=== PATIENT | male | born 1960 | race African-American/Black ===

== ENCOUNTER 2016-06-02 18:40 | Emergency (ER) | payer BC ==
--- NOTE | ~2016-06-02 | CT16 ---
[facility] A Service of [facility] RADIOLOGY TEXT RESULTS PATIENT: MIKAL ARITA JR LOCATION: [facility] : 56 UNIT #: [id number] AGE: [address]: Cam Frausto MD SEX: M ORDER DR: [id number] [facility] [address] [place], [place] [address] [id number] E MR#: [id number] Acc #: [id number] NAME: MIKAL ARITA JR : 1960 SEX: M STUDY DATE/TIME: 06/02/2016 20:45 UNIT: [facility] ROOM: STUDY DESCRIPTION: CT Angio Chest for PE Attending Physician: Cam Frausto M.D. Ordering Physician: Cam Frausto M.D. Primary Care Physician: Renee Sanchez A.P.R.N. MEDICAL IMAGING REPORT This report is preliminary unless electronic signature is present EXAM CT angiogram chest with IV contrast HISTORY Shortness of air today. Syncope. TECHNIQUE This CT examination was performed with one or more of the following radiation dose reduction techniques: automatic exposure control, adjustment of mA and/or kV according to patient size, and iterative reconstruction. FINDINGS IV contrast enhanced CT angiogram of the chest was performed with 3-D reconstructions. Minimal atelectasis in the posterior lower lobes. No airspace infiltrates or pleural effusions. Dilatation of the main pulmonary artery measuring 5 cm in diameter. The central right and left pulmonary arteries are normal in caliber. No pulmonary embolus. Small calcified mediastinal and left hilar nodes. Small incidental pleural lipoma over the lateral right upper lobe measuring 1 cm in short axis dimension. Normal caliber thoracic aorta. IMPRESSION 1. No pulmonary embolus. 2. Dilatation of the main pulmonary artery measuring 5 cm in diameter. Remainder of the pulmonary arteries are normal in caliber. 3. No focal infiltrates or effusions. No adenopathy. 4. Incidental small pleural lipoma over the lateral right upper lobe measuring close to 1 cm in short axis dimension. [facility] A Service of [facility] RADIOLOGY TEXT RESULTS PATIENT: MIKAL ARITA JR LOCATION: [facility] #: [id number] : 56 UNIT #: [id number] AGE: [address]: Cam Frausto MD SEX: M ORDER DR: Dictated by... Deep Ordoñez M.D. THIS IS AN ELECTRONICALLY VERIFIED REPORT Deep Ordoñez M.D. at 06/03/2016 11:08 AM BUBBA/jerzy TD: 06/03/2016 08:15 JOB #: [id number] MEDICAL IMAGING REPORT Page 1 of 1 COPY
--- NOTE | ~2016-06-02 | EKG ---
PATIENT: MIKAL ARITA UNIT #: [id number] Ventricular Rate: 62 BPM Atrial Rate: 62 BPM P-R Interval: 104 ms QRS Duration: 112 ms Q-T Interval: 424 ms QTC Calculation(Bezet): 430 ms Calculated R [place]: 64 degrees Calculated T [place]: -122 degrees Diagnosis Line: Sinus rhythm with short MS with Premature atrial Diagnosis Line: complexes Diagnosis Line: Inferior-posterior infarct , age undetermined Diagnosis Line: Anterolateral infarct , age undetermined Diagnosis Line: Abnormal ECG Diagnosis Line: When compared with ECG of 25-NOV-2012 11:55, Diagnosis Line: Significant changes have occurred Diagnosis Line: Confirmed by ERIC CRUZ MD ([id number]) on 06/02/2016 Diagnosis Line: 10:03:14 PM INTERPRETING MD: NANCY WOOTEN
--- NOTE | ~2016-06-02 | CR72 ---
[facility] A Service of [facility] RADIOLOGY TEXT RESULTS PATIENT: MIKAL ARITA JR LOCATION: [facility] : 56 UNIT #: [id number] AGE: [address]: Cam Frausto MD SEX: M ORDER DR: [id number] [facility] [address] [place], [place] [address] [id number] E MR#: [id number] Acc #: [id number] NAME: MIKAL ARITA JR : 1960 SEX: M STUDY DATE/TIME: 06/02/2016 16:40 UNIT: [facility] ROOM: STUDY DESCRIPTION: CR Chest Single View Portable Attending Physician: Cam Frausto M.D. Ordering Physician: Drake Singh M.D. Primary Care Physician: Renee Sanchez A.P.R.N. MEDICAL IMAGING REPORT This report is preliminary unless electronic signature is present EXAM Single view of the chest, 06/02/2016 COMPARISON Chest 2 views dated 01/24/2016. HISTORY Chest pain and tightness, shortness of air today. FINDINGS 2 views of the chest were obtained. Minimal if any atelectatic changes are in the lung bases, stable since last year. No superimposed acute cardiopulmonary disease. Heart, mediastinum and bones appear to be within normal limits. Dictated by... Humera Washington M.D. THIS IS AN ELECTRONICALLY VERIFIED REPORT Humera Washington M.D. at 06/03/2016 1:48 PM CPR/ljd TD: 06/03/2016 04:53 JOB #: [id number] MEDICAL IMAGING REPORT Page 1 of 1 COPY
[2016-06-02 17:30] LABS: BASOPHIL# 0.1 X10e3 (0-0.3); BASOPHIL% 1.3 % (0-2.5); EOSINOPHIL# 0.5 X10e3 (0-0.7); EOSINOPHIL% 7.6 % (0.0-7.0); HEMATOCRIT 43.2 % (38.0-50.0); HEMOGLOBIN 13.9 gm/dL (13.0-16.0); LYMPHOCYTE# 1.5 X10e3 (1.0-3.5); LYMPHOCYTE% 25.4 % (17.0-45.0); MEAN CELL VOLUME 95.7 FL (83-96); MEAN CORPUSCULAR HEMOGLOBIN 30.8 PG (28-34); MEAN CORPUSCULAR HGB CONC 32.2 g/dL (30-36); MONOCYTE# 0.7 X10e3 (0-1.0); MONOCYTE% 12.1 % (3.0-12.0); NEUTROPHIL# 3.2 X10e3 (1.5-7.1); NEUTROPHIL% 53.6 % (40-75); PLATELET COUNT 213 X10e3 (140-420); RED BLOOD COUNT 4.51 X10e (3.90-5.60); RED CELL DISTRIBUTION WIDTH 15.4 % (11.0-15.5); WHITE BLOOD COUNT 6.1 X10e3 (4.0-10.5)
[2016-06-02 17:32] LABS: DIFF IND NO
[2016-06-02 17:43] LABS: PARTIAL THROMBOPLASTIN TIME 25.8 SECONDS (23.5-31.3); PROTHROMBIN TIME (PATIENT) 10.6 SECONDS (9.6-11.5)
[2016-06-02 17:53] LABS: ALBUMIN SERUM 4.1 g/dL (3.5-5.0); BILIRUBIN, DIRECT 0.1 mg/dL (0.0-0.2); BILIRUBIN,INDIRECT 0.1 mg/dL (0.0-0.9); BILIRUBIN,TOTAL 0.2 mg/dL (0.2-2.0); BUN/CREATININE RATIO 13.33; CALCIUM SERUM 9.2 mg/dL (8.4-10.2); CREATININE SERUM 1.2 mg/dL (0.6-1.4); GLOM FILT RATE Estimated 76.8 mL/min (>60); POTASSIUM 3.8 mmol/L (3.5-5.1)
[~2016-06-02 18:40] MED LIST: APRESOLINE PO; ASPIRIN81 M1 PO; FLOMAX0.4 M1 PO; FLONASE 0.05% N16 G1; FLONASE16 GM; HYDRALAZINE HC100 MG PO; HYDROCHLOROTHIA25 MG PO; HYDROCODON-ACE1 EAC9 PO; LASIX20 MG PO; MUCINEX D ER T1 EACH PO; MUCINEX DM ER1 EACH PO; PERCOCET 7.5-31 EACH PO; PREDNISONE PO; PROAIR HFA8.5 GM IH; PROAIR HFA8.5 GM IN; SYMBICORT INH; SYNTHROID PO
[2016-06-02 18:53] LABS: POC - CKMB 7.1 ng/mL (0.0-7.9); POC - TROPONIN <0.05 ng/mL (<=0.05)
[2016-06-02 20:37] LABS: POC - CKMB 4.8 ng/mL (0.0-7.9); POC - TROPONIN <0.05 ng/mL (<=0.05)
[2016-06-02 22:09] LABS: POC - CKMB 5.8 ng/mL (0.0-7.9); POC - TROPONIN <0.05 ng/mL (<=0.05)
== END 2016-06-02 22:51 | disposition home or self-care (01) ==
LOC: CED 18:40
PROVIDERS: Emergency Medicine
DX: T17.928A Food in respiratory tract, part unspecified causing other injury, initial encounter (principal); R55 Syncope and collapse; I50.9 Heart failure, unspecified; Z88.5 Allergy status to narcotic agent; Z79.899 Other long term (current) drug therapy; Z88.8 Allergy status to other drugs, medicaments and biological substances; X58.XXXA Exposure to other specified factors, initial encounter; Y92.9 Unspecified place or not applicable
CPT/HCPCS: 36415; 71010; 71275; 80048; 80076; 82553; 84484; 85025; 85379; 85610; 85730; 93005; 99285; Q9967

== ENCOUNTER 2016-07-10 19:19 | Observation (INO) | payer BC ==
--- NOTE | ~2016-07-10 | CT23 ---
[facility] A Service of [facility] & [facility] RADIOLOGY TEXT RESULTS PATIENT: MIKAL ARITA JR LOCATION: [facility] 334-01 : 56 UNIT #: [id number] AGE: [address]: Linda Nicole MD SEX: M ORDER DR: [id number] [facility] [address] [place], [place] [address] [id number] I MR#: [id number] Acc #: [id number] NAME: MIKAL ARITA JR : 1960 SEX: M STUDY DATE/TIME: 07/11/2016 12:57 UNIT: [address] ROOM: [facility] STUDY DESCRIPTION: CT Angio Neck Attending Physician: Linda Nicole M.D. Ordering Physician: Kelly Lynch M.D. Primary Care Physician: Renee Sanchez A.P.R.N. MEDICAL IMAGING REPORT This report is preliminary unless electronic signature is present EXAM CT scan of the head and neck with contrast with CT angiography HISTORY Left-sided neck pain for the past 4 days intermittently with balance disturbance over the last 3 months. 2 falls within the past 3 weeks. Syncope. TECHNIQUE Thin section imaging was obtained from the mid mediastinum to the top of head with contrast. 100 mL of Isovue was used. CT angiography was performed with thick sliding MIPs, curved planar reformats and 3-D volumetric imaging with surface shaded and volume shaded display. This CT exam was performed with one or more of the following radiation dose reduction techniques: automatic exposure control, adjustment of mA and/or kV according to patient size, and iterative reconstruction. FINDINGS Extravascular structures are unremarkable. The CT angiographic study shows wide patency of the great vessels off the arch. Both vertebrals are widely patent. The right vertebral is more dominant distally. The basilar artery is widely patent. There is minimal calcified plaque at the left bifurcation for the carotids without stenosis by NASCET criteria. The right bifurcation is clear. The distal carotids up through the siphons are unremarkable. No evidence of carotid dissection. In the intracranial circulation there is no evidence of aneurysm, vascular malformation or major branch vessel occlusion. No severe intracranial stenosis is seen. [facility] A Service of [facility] & [facility] RADIOLOGY TEXT RESULTS PATIENT: MIKAL ARITA JR LOCATION: [facility] 334-01 : 56 UNIT #: [id number] AGE: [address]: Linda Nicole MD SEX: M ORDER DR: IMPRESSION Tiny calcified plaque at the left carotid bifurcation. Otherwise negative CTA. STAT * RESULT e Dictated by... Hermelindo Cortez M.D. THIS IS AN ELECTRONICALLY VERIFIED REPORT Hermelindo Cortez M.D. at 07/11/2016 6:26 PM Ghislaine TD: 07/11/2016 17:27 JOB #: [id number] MEDICAL IMAGING REPORT Page 1 of 1 COPY
--- NOTE | ~2016-07-10 | HP ---
Unit #: [id number] #: [id number] Patient: MIKAL ARITA JR [id number] [address] [place], [place] [address] [id number] I MR#: [id number] NAME: MIKAL ARITA JR ROOM: 334 Age: 56 Sex: M Admission Date: 07/11/2016 : 1960 Attending Physician: Kelly Lynch M.D. Primary Care Physician: Renee Sanchez A.P.R.N. HISTORY AND PHYSICAL CHIEF COMPLAINT Mild rhabdomyolysis, left neck pain, muscle cramps. HISTORY This pleasant 56-year-old male with sarcoidosis, COPD, SHARI, valvular heart disease, hypertension, is admitted for muscle cramps and left neck pain. The patient states that over the past week she has been experiencing intense generalized muscle cramps to the point where he will develop chest pain and shortness of breath and actually have two syncopal episodes. Over the past five days, has been experiencing fairly intense left posterior neck pain as well. Notes some lightheadedness with the above. He presents to this emergency department with mild rhabdomyolysis. In the ER, he was given Tylenol and being bolused with IV fluids. Does have a history of thyroid disease, does not take cholesterol medicines. He is followed by Dr. Will Holland for heart disease but states that he had a negative cardiac catheterization in the past along with negative stress test. He does have a reported history of valvular heart disease. Saw Dr. Will Holland yesterday. PAST MEDICAL HISTORY 1. Sarcoidosis of the lungs. 2. COPD/asthma and obstructive sleep apnea, on p.r.n. oxygen and uses BiPAP. 3. Lumbar spinal stenosis with right foot drop. 4. Chronic back pain secondary to spinal stenosis. 5. History of kidney disease. 6. BPH. 7. Hypertension. 8. Hypothyroidism. 9. Valvular heart disease. 10. Bilateral arthroscopic knee surgery. 11. Umbilical hernia repair. 12. Bilateral arm tendon rupture and repair. 13. Adenoidectomy. 14. Left femur fracture requiring surgery. ALLERGIES Ultram, resulting in a seizure. Lisinopril and hydrochlorothiazide. HOME MEDICATIONS 1. Albuterol inhaler as needed. 2. Aspirin 81 mg daily. 3. Lasix 40 mg b.i.d. Unit #: [id number] #: [id number] Patient: MIKAL ARITA JR 4. Hydralazine 100 mg b.i.d. 5. Synthroid 0.25 mg daily. 6. Losartan 50 mg daily. 7. Toprol XL 50 mg daily. 8. Singulair 10 mg daily. 9. Multivitamin daily. 10. Percocet 7.5/325 q.6 hours as needed. 11. Potassium 20 mEq b.i.d. 12. Flomax 0.4 mg daily. 13. Spiriva, one puff daily. FAMILY HISTORY CAD. SOCIAL HISTORY The patient lives with his and son. He stopped smoking 17 years ago. Drinks daily alcohol, probably about one drink a night but more on the weekends. REVIEW OF SYSTEMS Notable for tense muscle cramps, sarcoidosis, COPD, obstructive sleep apnea, left knee pain, spinal stenosis, foot drop, hypothyroidism, hypertension, valvular heart disease, above mentioned surgeries. All other systems were reviewed and are otherwise negative. PHYSICAL EXAMINATION GENERAL APPEARANCE: Pleasant, obese 56-year-old male, currently in no acute distress. VITAL SIGNS: Temperature 98.3, pulse 80, respirations 20, blood pressure 147/87. O2 saturation is 95%. HEENT: Eyes PERRLA. Extraocular muscles are intact. Pharynx is benign. NECK: Supple without adenopathy, thyromegaly or carotid bruits. CHEST: Clear. CARDIAC: Normal S1 and S2 without murmur. ABDOMEN: Bowel sounds are present. No hepatosplenomegaly, tenderness or masses. Well-healed scar is noted. EXTREMITIES: Minimal edema. Pedal pulses are present. NEUROLOGIC EXAM: The patient is awake, alert, oriented x3. His cranial nerves are intact. He has +5 out of 5 strength throughout. Normal [id number]-[id number]. Negative pronator drift. DIAGNOSTIC STUDIES LABORATORY: Admission labs - hematocrit 45, normal white count and platelet count. SMA-12 - notable for an ALT of 52, AST 59. CPK is 2600. BMP is normal. Cardiac markers are negative. Urinalysis is negative. IMAGING: Head CT shows sinus disease and bilateral proptosis. Chest x-ray - no acute disease. CARDIOVASCULAR: EKG shows a normal sinus rhythm, rate 77 with nonspecific inferior T wave changes and lateral ST abnormalities. Unit #: [id number] #: [id number] Patient: MIKAL ARITA JR ASSESSMENT 1. Severe muscle cramps, intermittent for the past two weeks, of uncertain etiology: No changes in medicine. Chemistries are fairly normal. The patient does not take statins. With this, he has mild rhabdomyolysis. 2. Reported history of valvular heart disease with negative ischemia workup in the past. 3. Syncope x2 over the past two weeks when experiencing severe muscle cramps. 4. History of kidney disease. 5. Sarcoidosis. 6. Hypothyroidism. 7. Hypertension. 8. Obstructive sleep apnea and chronic obstructive pulmonary disease. 9. Left neck pain. 10. Benign prostatic hypertrophy. 11. Morbid obesity. PLANS 1. IV fluids. 2. Recheck labs in the morning, check magnesium, TSH, urine tox screen, sed rate, SHANNAN, cardiac enzymes. 3. Repeat EKG in the morning. 4. Decrease Lasix and potassium for now in case these are contributing to patient's symptoms. 5. Old records. 6. CTA of the head and neck in the morning after hydration. 7. Holter monitor. 8. DVT prophylaxis. Dictated by Kelly Lynch M.D. MAL/tate TD: 07/11/2016 05:20 JOB #: [id number] HISTORY AND PHYSICAL Page 1 of 1 X Kelly Lynch MD HISTORY AND PHYSICAL
--- NOTE | ~2016-07-10 | BMI ---
[facility] Nutrition Therapy DATE: 07/11/16 Patient: MIKAL Paula JR LYLA Physician: SCARLETT Address: [address] [place] [address] Room/Bed: [address] [place] [address], Zip: [place] [address] Admit Date: 07/11/16 Date of : 56 Height: 6 1 Weight: 333 151.4 HIGH BMI NOTE: DX: 56 y/o male admitted with mild rhabdo, dizziness ANTHROPOMETRICS: Ht: 73", Wt: 151.4 kg, BMI: 44 (Stage III obese) DIET: Healthy heart INTERVENTION: Restricted diet, meds/fluids per MD RECOMMENDATIONS: Continue current diet to promote a gradual weight loss towards a healthy BMI range. Respectfully, Sabina Abdi RD, LD [facility] cc: client file
--- NOTE | ~2016-07-10 | EKG ---
PATIENT: MIKAL ARITA UNIT #: [id number] Ventricular Rate: 52 BPM Atrial Rate: 108 BPM QRS Duration: 102 ms Q-T Interval: 496 ms QTC Calculation(Bezet): 461 ms Calculated R [place]: 63 degrees Calculated T Pride: -92 degrees Diagnosis Line: Sinus rhythm Diagnosis Line: Inferior-posterior infarct , age undetermined Diagnosis Line: Baseline wander Diagnosis Line: Abnormal ECG Diagnosis Line: No previous ECGs available Diagnosis Line: Confirmed by JIAN OJEDA MD ([id number]) on 07/11/2016 Diagnosis Line: 6:08:22 PM INTERPRETING MD: LYNETTE WOOTEN
--- NOTE | ~2016-07-10 | CT71 ---
[facility] A Service of [facility] RADIOLOGY TEXT RESULTS PATIENT: MIKAL ARITA JR LOCATION: [facility] : 56 UNIT #: [id number] AGE: [address]: CHARBEL ALVAREZ APRN SEX: M ORDER DR: [id number] [facility] [address] [place], [place] [address] [id number] E MR#: [id number] Acc #: [id number] NAME: MIKAL ARITA JR : 1960 SEX: M STUDY DATE/TIME: 07/10/2016 21:27 UNIT: [facility] ROOM: STUDY DESCRIPTION: CT Head Wo Contrast Attending Physician: Charbel Alvarez Aprn Ordering Physician: Charbel Alvarez Aprn Primary Care Physician: Renee Sanchez A.P.R.N. MEDICAL IMAGING REPORT This report is preliminary unless electronic signature is present EXAM CT brain without contrast HISTORY Head and neck pain for 4 days. Loss of balance for [address] exam was performed with one or more of the following radiation dose reduction techniques: automatic exposure control, adjustment of mA and/or kV according to patient size, and iterative reconstruction. FINDINGS CT brain without contrast demonstrates no intracranial hemorrhage, mass or edema. No midline shift or ventricular dilatation or extraaxial fluid collection. The right mastoid air cells are predominately opacified by mucosal thickening. There is also mild mucosal thickening in ethmoid air cells bilaterally. Bilateral orbital proptosis. IMPRESSION 1. No acute intracranial findings. 2. Mild mucosal thickening in ethmoid air cells bilaterally and in right mastoid air cells. 3. Bilateral orbital proptosis. Dictated by... Deep Ordoñez M.D. THIS IS AN ELECTRONICALLY VERIFIED REPORT Deep Ordoñez M.D. at 07/10/2016 11:22 PM DFL/pcl [facility] A Service [facility] RADIOLOGY TEXT RESULTS PATIENT: MIKAL ARITA JR LOCATION: [facility] : 56 UNIT #: [id number] AGE: [address]: CHARBEL ALVAREZ APRN SEX: M ORDER DR: TD: 07/10/2016 22:45 JOB #: [id number] MEDICAL IMAGING REPORT Page 1 of 1 COPY
--- NOTE | ~2016-07-10 | EKG ---
PATIENT: MIKAL ARITA UNIT #: [id number] Ventricular Rate: 77 BPM Atrial Rate: 77 BPM P-R Interval: 208 ms QRS Duration: 98 ms Q-T Interval: 414 ms QTC Calculation(Bezet): 468 ms Calculated R [place]: 88 degrees Calculated T [place]: -101 degrees Diagnosis Line: Normal sinus rhythm with short LA Diagnosis Line: T wave abnormality, consider anterior ischemia T Diagnosis Line: wave abnormality, consider anterior ischemia T Diagnosis Line: wave abnormality, consider inferior ischemia Diagnosis Line: Abnormal ECG Diagnosis Line: Diagnosis Line: Confirmed by JIAN OJEDA MD ([id number]) on 07/11/2016 Diagnosis Line: 6:04:27 PM INTERPRETING MD: LYNETTE WOOTEN
--- NOTE | ~2016-07-10 | CR72 ---
[facility] A Service of [facility] & [facility] RADIOLOGY TEXT RESULTS PATIENT: MIKAL ARITA JR LOCATION: [facility] : 56 UNIT #: [id number] AGE: [address]: CHARBEL ALVAREZ APRN SEX: M ORDER DR: [id number] [facility] [address] [place], [place] [address] [id number] E MR#: [id number] Acc #: [id number] NAME: MIKAL ARITA JR : 1960 SEX: M STUDY DATE/TIME: 07/10/2016 20:26 UNIT: [facility] ROOM: STUDY DESCRIPTION: CR Chest Single View Portable Attending Physician: Charbel Alvarez Aprn Ordering Physician: Charbel Alvarez Aprn Primary Care Physician: Renee Sanchez A.P.R.N. MEDICAL IMAGING REPORT This report is preliminary unless electronic signature is present EXAM Portable chest HISTORY Left-sided pain. Dizzy and shortness of air today. FINDINGS Mild hyperinflation of both lungs. Cardiac size and pulmonary vascularity are normal. Mild linear atelectasis or scarring in the left base. No airspace infiltrates or pleural effusions. IMPRESSION No acute findings and no active disease. Dictated by... Deep Ordoñez M.D. THIS IS AN ELECTRONICALLY VERIFIED REPORT Deep Ordoñez M.D. at 07/10/2016 11:22 PM DFL/pcl TD: 07/10/2016 22:29 JOB #: [id number] MEDICAL IMAGING REPORT Page 1 of 1 COPY
--- NOTE | ~2016-07-10 | CT17 ---
[facility] A Service of [facility] & [facility] RADIOLOGY TEXT RESULTS PATIENT: MIKAL ARITA JR LOCATION: [facility] 334-01 : 56 UNIT #: [id number] AGE: [address]: Linda Nicole MD SEX: M ORDER DR: [id number] [facility] [address] [place], [place] [address] [id number] I MR#: [id number] Acc #: [id number] NAME: MIKAL ARITA JR : 1960 SEX: M STUDY DATE/TIME: 07/11/2016 12:57 UNIT: [address] ROOM: [facility] STUDY DESCRIPTION: CT Angio Head Attending Physician: Linda Nicole M.D. Ordering Physician: Kelly Lynch M.D. Primary Care Physician: Renee Sanchez A.P.R.N. MEDICAL IMAGING REPORT This report is preliminary unless electronic signature is present EXAM CT scan of the head 07/11/2016 Result text under order number ending [id number] CT scan of the head and neck with contrast with CT angiography 07/11/2016. Please see this order for result text. Dictated by... Hermelindo Cortez M.D. THIS IS AN ELECTRONICALLY VERIFIED REPORT Hermelindo Cortez M.D. at 07/11/2016 6:26 PM HARESH/tico TD: 07/11/2016 17:29 JOB #: [id number] MEDICAL IMAGING REPORT Page 1 of 1 COPY
--- NOTE | ~2016-07-10 | DS ---
Unit #: [id number] #: [id number] Patient: MIKAL EASON JR [id number] [address] [address] [id number] I MR#: [id number] NAME: MIKAL EASON JR ROOM: 334 Age: 56 Sex: M Admission Date: 07/11/2016 : 1960 Discharge Date: 07/11/2016 Attending Physician: Linda Nicole M.D. Primary Care Physician: Renee Sanchez A.P.R.N. DISCHARGE SUMMARY PRINCIPAL DIAGNOSES 1. Mild rhabdomyolysis secondary to #2. 2. Severe left trapezius muscle cramp, acute on chronic. 3. Syncope x2, the most recent being three weeks ago. 4. Sarcoidosis, maintained on prednisone therapy. 5. Hypothyroidism. 6. Hypertension. 7. Morbid obesity. 8. Benign prostatic hypertrophy. 9. Obstructive sleep apnea, maintained on CPAP. 10. Chronic obstructive pulmonary disease. 11. Bradycardia, mild. 12. Chronic kidney disease stage 3 with baseline creatinine of approximately 1.3. CONSULTANTS None. PROCEDURES 1. CTA of the head and neck, results of which are currently pending. 2. CT of the head without contrast on July 10, 2016, with no acute findings. Mild mucosal thickening of the ethmoid air cells bilaterally and right mastoid air cells. Bilateral orbital proptosis noted. 3. Chest x-ray on July 10, 2016, with no acute findings. CLINICAL HISTORY/HOSPITAL COURSE Mr. Eason is a very nice 56-year-old -[place] male who presents to the emergency department with complaints of severe left neck pain and cramping. CT scan of the head in the emergency department was unremarkable. However, blood work reveals some rhabdomyolysis with a CPK of approximately 2600 and patient was admitted due to his elevated CPK in conjunction with some reports of syncope at home recently. Please refer to H and P for further details. The patient was monitored overnight but his muscle cramping has completely resolved. He states he has these intermittently for quite some time and will intermittently take baclofen. However, he had ran out of baclofen. CTA of the head and neck has been done but results currently pending to ensure there is no abnormality in vasculature but I anticipate this will be negative. In regards to patient's syncope, he states this usually happens when he is short of breath and hyperventilates at times. I have had no evidence of Unit #: [id number] #: [id number] Patient: MIKAL EASON JR arrhythmia during this hospitalization. He has had some mild bradycardia with heart rates running in the 55s but these tend to occur more when he is sleeping and he is on beta uma therapy. I don't anticipate that this bradycardia is contributing to his episodes of syncope. The patient is followed on a chronic outpatient basis with Dr. Holland and he can follow up there. Assuming CTA of the head and neck is normal, the patient can be discharged home later today. DISCHARGE CONDITION Stable. DISCHARGE STATUS Discharge to home. DISCHARGE MEDICATIONS 1. Albuterol inhaler, two puffs every six hours p.r.n. for shortness of breath. 2. Flomax 0.4 mg daily. 3. Spiriva 18 mcg, one puff daily. 4. Metoprolol succinate 50 mg daily. 5. Lasix 40 mg daily. 6. Hydralazine 100 mg b.i.d. 7. Losartan 50 mg daily. 8. Singulair 10 mg daily. 9. Daily multivitamin. 10. Aspirin 81 mg daily. 11. Percocet 7.5/325 mg, one every six hours p.r.n. for pain. 12. Potassium chloride 20 mEq p.o. daily. 13. Levothyroxine 250 mcg p.o. daily. 14. Baclofen 10 mg p.o. t.i.d. p.r.n. for muscle spasm. DISCHARGE INSTRUCTIONS The patient was instructed to follow a heart healthy low calorie diet. He can increase his activity as tolerated. FOLLOWUP The patient will follow up with Renee Sanchez A.P.R.N. as previously scheduled on July 16. Dictated by... Linda Nicole M.D. TYREE/tate TD: 07/12/2016 07:34 JOB #: [id number] Unit #: [id number] #: [id number] Patient: MIKAL EASON JR DISCHARGE SUMMARY Page 1 of 1 X Linda Nicole MD X DISCHARGE SUMMARY
--- NOTE | ~2016-07-10 | HM ---
Unit #: [id number] #: [id number] Patient: MIKAL ARITA JR [id number] [address] [address] [id number] MR#: [id number] NAME: MIKAL ARITA JR : 1960 SEX: M STUDY DATE/TIME: 07/11/2016 UNIT: [id number] ROOM: [facility] STUDY DESCRIPTION: Attending Physician: Linda Nicole M.D. Primary Care Physician: Renee Sanchez A.P.R.N. CARDIOLOGY REPORT EXAM 24-hour Holter monitor. DATE APPLIED 07/11/16 DATE SCANNED 07/16/[address] Nevarez ORDERED BY Dr. Lynch REASON FOR STUDY Heart arrhythmia. FINDINGS 1. Basic rhythm is normal sinus rhythm. Total beats 78,615. Average heart rate 55 per minute. Heart rate varies from 38 per minute at 7:26 a.m. to 128 per minute at 4:40 a.m. 2. Twenty isolated PVCs noted. 3. Next, 6886 isolated PACs and 30 atrial couplets noted. Eleven runs of supraventricular tachycardia noted. Longest run contains 11 beats. 4. No high-grade AV blocks noted. 5. No diary with symptoms available. Dictated by... Carlos Peña/boo TD: 07/17/2016 16:10 JOB #: [id number] Unit #: [id number] #: [id number] Patient: MIKAL ARITA JR CARDIOLOGY REPORT Page 1 of 1 X Lilliana Nevarez MD [facility]IT[facility] REPORT
[2016-07-10 21:05] LABS: POC - CKMB 13.6 ng/mL (0.0-7.9); POC - TROPONIN <0.05 ng/mL (<=0.05)
[2016-07-10 21:12] LABS: BASOPHIL% 0.4 % (0-2.5); EOSINOPHIL# 0.2 X10e3 (0-0.7); EOSINOPHIL% 3.3 % (0.0-7.0); LYMPHOCYTE# 2.1 X10e3 (1.0-3.5); LYMPHOCYTE% 27.5 % (17.0-45.0); MEAN CELL VOLUME 94.8 FL (83-96); MEAN CORPUSCULAR HEMOGLOBIN 31.7 PG (28-34); MEAN CORPUSCULAR HGB CONC 33.4 g/dL (30-36); MEAN PLATELET VOLUME 9.5 FL (6.5-11.5); MONOCYTE# 0.8 X10e3 (0-1.0); MONOCYTE% 9.9 % (3.0-12.0); NEUTROPHIL# 4.5 X10e3 (1.5-7.1); NEUTROPHIL% 58.9 % (40-75); PLATELET COUNT 200 X10e3 (140-420); RED BLOOD COUNT 4.75 X10e (3.90-5.60); RED CELL DISTRIBUTION WIDTH 14.6 % (11.0-15.5); WHITE BLOOD COUNT 7.6 X10e3 (4.0-10.5)
[2016-07-10 21:15] LABS: DIFF IND NO
[2016-07-10 21:33] LABS: ALBUMIN SERUM 4.5 g/dL (3.5-5.0); BILIRUBIN,TOTAL 0.1 mg/dL (0.2-2.0); BUN/CREATININE RATIO 15.38; CALCIUM SERUM 9.5 mg/dL (8.4-10.2); CREATININE SERUM 1.3 mg/dL (0.6-1.4); GLOM FILT RATE Estimated 69.7 mL/min (>60); POTASSIUM 3.6 mmol/L (3.5-5.1); PROTEIN TOTAL SERUM 7.5 g/dL (6.0-8.3)
[2016-07-10 21:36] LABS: BILIRUBIN, DIRECT 0.1 mg/dL (0.0-0.2)
[2016-07-10] MEDS ORDERED: ALBUTEROL2.5 MG/3 M INH (22:45)
[2016-07-10] MEDS ORDERED: FUROSEMIDE40 MG PO (22:46)
[2016-07-10] MEDS ORDERED: ASPIRIN81 M2 PO (22:46)
[2016-07-10] MEDS ORDERED: HYDRALAZINE HC100 MG PO (22:47)
[2016-07-10] MEDS ORDERED: LEVO-T200 MCG PO (22:48)
[2016-07-10] MEDS ORDERED: TOPROL XL50 MG PO (22:49)
[2016-07-10] MEDS ORDERED: LOSARTAN POTASS50 MG PO (22:49)
[2016-07-10] MEDS ORDERED: MULTIPLE VITAM1 EAC1 PO (22:50)
[2016-07-10] MEDS ORDERED: SINGULAIR PO (22:50)
[2016-07-10] MEDS ORDERED: OXYCODON-ACETA1 EAC1 PO (22:51)
[2016-07-10] MEDS ORDERED: K-LOR HOSPITAL20 ME1 DOB (22:51)
[2016-07-10] MEDS ORDERED: FLOMAX0.4 M1 DOB (22:52)
[2016-07-10] MEDS ORDERED: SPIRIVA RESPIMAT4 G1 INH (22:53)
[2016-07-10 23:38] LABS: URINE APPEARANCE CLEAR; URINE BILIRUBIN NEG (NEG); URINE BLOOD NEG (NEG); URINE COLOR YELLOW; URINE GLUCOSE NEG (NEG); URINE KETONE NEG (NEG); URINE LEUKOCYTE ESTERASE NEG (NEG); URINE NITRATE NEG (NEG); URINE PROTEIN NEG (NEG); URINE SPECIFIC GRAVITY 1.019 (1.003-1.035)
[2016-07-10 23:41] LABS: CULTURE INDICATED? NO
[2016-07-11 05:45] LABS: AMPHETAMINE NEG (NEG); BARBITURATES NEG (NEG); BENZODIAZEPINES NEG (NEG); COCAINE NEG (NEG); MARIJUANA NEG (NEG); OPIATES NEG (NEG); TRICYCLIC ANTIDEPRESSANTS NEG (NEG); U METHADONE NEG (NEG)
[2016-07-11 10:06] LABS: HEMATOCRIT 44.1 % (38.0-50.0); HEMOGLOBIN 14.2 gm/dL (13.0-16.0); MEAN CELL VOLUME 96.2 FL (83-96); MEAN CORPUSCULAR HEMOGLOBIN 30.9 PG (28-34); MEAN CORPUSCULAR HGB CONC 32.1 g/dL (30-36); MEAN PLATELET VOLUME 9.7 FL (6.5-11.5); RED BLOOD COUNT 4.58 X10e (3.90-5.60); RED CELL DISTRIBUTION WIDTH 14.8 % (11.0-15.5); WHITE BLOOD COUNT 6.4 X10e3 (4.0-10.5)
[2016-07-11 13:03] LABS: ALBUMIN SERUM 4.2 g/dL (3.5-5.0); BILIRUBIN,TOTAL 0.7 mg/dL (0.2-2.0); BUN/CREATININE RATIO 14.16; CALCIUM SERUM 9.1 mg/dL (8.4-10.2); CREATININE SERUM 1.2 mg/dL (0.6-1.4); GLOM FILT RATE Estimated 76.8 mL/min (>60); PROTEIN TOTAL SERUM 6.8 g/dL (6.0-8.3)
[2016-07-11 13:28] LABS: %MB 1.1 % (0.0-4.0); MB 22.2 ng/ml
[2016-07-15 22:49] LABS: ANA SCREEN Negative (Negative)
== END 2016-07-11 18:08 | disposition home or self-care (01) | DRG 558 ==
LOC: CFTX 19:19 → CED 19:19 → CFTX 20:05 → CEDOF 07-11 00:45 → CED 07-11 00:45 → CEDOF 07-11 01:20 → C3A PCU 07-11 01:20 → CEDOF 07-11 02:21 → C3A PCU 07-11 02:21
PROVIDERS: Internal Medicine; Nurse Practitioner Family
DX: M62.82 Rhabdomyolysis (principal); R25.2 Cramp and spasm; R55 Syncope and collapse; D86.0 Sarcoidosis of lung; Z79.52 Long term (current) use of systemic steroids; E03.9 Hypothyroidism, unspecified; G47.33 Obstructive sleep apnea (adult) (pediatric); I12.9 Hypertensive chronic kidney disease with stage 1 through stage 4 chronic kidney disease, or unspecified chronic kidney disease; N18.3 Chronic kidney disease, stage 3 (moderate); J44.9 Chronic obstructive pulmonary disease, unspecified; M54.2 Cervicalgia; N40.0 Benign prostatic hyperplasia without lower urinary tract symptoms; E66.01 Morbid (severe) obesity due to excess calories; Z87.891 Personal history of nicotine dependence; Z82.49 Family history of ischemic heart disease and other diseases of the circulatory system; Z87.448 Personal history of other diseases of urinary system
CPT/HCPCS: 36415; 70450; 70496; 70498; 71010; 80048; 80053; 80076; 80307; 81003; 82550; 82553; 83735; 83880; 84443; 84484; 85025; 85027; 85652; 86038; 86039; 93005; 93225; 93226; 94640; 94760; 96360; 96361; 96376; 99285; G0378; J1650; Q9967